=== PATIENT | female | born 1935 | race Caucasian/White ===

== ENCOUNTER 2024-06-25 10:18 | Outpatient (REF) | payer MEDICARE, SELFPAY | END 2024-06-25 10:19 | disposition home or self-care (01) | LOC: HO.HOSX 10:18 | PROVIDERS: Visit Provider Orthopaedic Surgery | DX: Z13.89 Encounter for screening for other disorder (principal) ==

== ENCOUNTER 2024-07-30 09:13 | Outpatient (REF) | payer MEDICARE, SELFPAY ==
--- NOTE | ~2024-07-30 | XR_ITS ---
EXAMINATION: XR KNEE 3 VIEWS LEFT HISTORY: M25.562 - Pain in left knee COMPARISON: There are no prior studies available for comparison. FINDINGS: Three views of the left knee are submitted. Osseous mineralization is normal. There is no fracture or dislocation. There is severe osteoarthritis of the medial compartment with joint space narrowing and osteophyte formation. There is moderate osteoarthritis of the patellofemoral compartment. There is chondrocalcinosis. There is no joint effusion. XR/XR knee LT 3V IMPRESSION: Osteoarthritis of the left knee as described. Electronically signed by: Jeffy Myers MD 07/30/2024 01:04 PM EDT
== END 2024-07-30 09:14 | disposition home or self-care (01) ==
LOC: HO.HOSX 09:13
PROVIDERS: Visit Provider Orthopaedic Surgery
DX: M17.12 Unilateral primary osteoarthritis, left knee (principal)
CPT/HCPCS: 73562; 99202

== ENCOUNTER 2024-07-30 10:47 | Outpatient (AMB) | payer MEDICARE, SELFPAY ==
--- NOTE | 2024-07-30 11:07 | MHC.OFFVIS ---
Vital Signs 07/30/24 11:17 Height 5 ft 2 in Weight 138 lb BMI 25.2 Intake Visit Reasons: [employer]- LT knee pain Intake Note: Brielle is an 88 year old female who presents with complaints of progressively worsening left knee pain. She describes her pain as sharp in nature. Her pain has gotten worse over the last 10 years in spite of continued non operative treatments. She has had cortisone injections in the past. The most recent injection gave her minimal relief. She has not had a viscosupplementation injection. She has failed the last 3 months of conservative treatment which have included a home exercise program, Tylenol, and anti-inflammatory medicines. She wishes to hold off on total knee replacement surgery if at all possible. Allergies lisinopril Adverse Reaction (Severe, Verified 07/30/24 11:17) Cough Medication List - Last Reconciled 07/30/24 by Issa Manzano MD amlodipine mg PO DAILY irbesartan mg PO DAILY meclizine mg PO 3XD metoprolol succinate ER mg PO DAILY pravastatin mg PO DAILY Physical Exam Vital Signs: BMI result Body Mass Index 25.2 Const Other: Well-nourished well-developed very friendly female awake alert and oriented x3 in no acute distress Extrem Other: Bilateral lower extremity examination shows good capillary refill, no skin lesions noted, normal sensation light touch Left knee examination shows a minimal effusion, palpable crepitus with range of motion, pain with range of motion, no instability Results Reviewed Results Reviewed: X-rays of the patient's left knee show joint space narrowing, subchondral sclerosis, no acute bony abnormalities Assessment & Plan Assessment & Plan (1) Osteoarthritis of left knee: Code(s): M17.12 - Unilateral primary osteoarthritis, left knee Category: Medical Plan Ms. Golden presents with left knee pain due to osteoarthritis. I had a lengthy discussion with the patient regarding the treatment options. She wishes to hold off on total knee replacement surgery if at all possible. I agree with this plan. She has not gotten good relief from cortisone injections in the past. Thus, I will see whether or not her insurance company will cover a viscosupplementation injection such as Durolane. I will see her back once the injection is available. Feel free to call me at any time should questions regarding her orthopedic management arise. I spent 20 minutes in reviewing the patient's records and imaging studies, seeing the patient and documenting in the medical record. Orders: Orders XR knee LT 3V 07/30/24 M25.562 - Pain in left knee Coding Level of Care Code New Pt Level 3 (51652) Complex EM visit Add On G2211 Diagnoses Osteoarthritis of left knee M17.12
[2024-07-30 11:17] VITALS: BMI 25.2
== END 2024-07-30 11:34 | disposition home or self-care (01) ==
LOC: HO.HOS 10:48
PROVIDERS: Visit Provider Orthopaedic Surgery
DX: M17.12 Unilateral primary osteoarthritis, left knee (principal)
CPT/HCPCS: 99203; G2211

== ENCOUNTER → 2024-07-30 10:54 | Outpatient (BNV) | payer MEDICARE, SELFPAY | PROVIDERS: Visit Provider Radiology Diagnostic Radiology | DX: M17.12 Unilateral primary osteoarthritis, left knee (principal) | CPT/HCPCS: 73562 ==